=== PATIENT | male | born 2000 | race Caucasian/White ===

== ENCOUNTER → 2021-07-20 | Outpatient (CLI) | payer OTHER | LOC: KOH-I 07-18 08:00 → EMI 13:00 | DX: S83.512A Sprain of anterior cruciate ligament of left knee, initial encounter (principal); R93.6 Abnormal findings on diagnostic imaging of limbs; V29.9XXA Motorcycle rider (driver) (passenger) injured in unspecified traffic accident, initial encounter | CPT/HCPCS: 73721 ==